=== PATIENT | female | born 1945 | race Two or more races ===

== ENCOUNTER 2021-07-09 10:28 | Emergency (ER) | payer OTHER ==
[~2021-07-09] VITALS: Ht 152.4 cm; Wt 68.0 kg
[2021-07-09] MEDS ORDERED: COZAAR100 MG PO (10:42)
== END 2021-07-09 14:23 | disposition home or self-care (01) ==
LOC: ER 10:28
DX: S61.421A Laceration with foreign body of right hand, initial encounter (principal); S00.83XA Contusion of other part of head, initial encounter; W18.09XA Striking against other object with subsequent fall, initial encounter; Y93.89 Activity, other specified; Y92.22 Religious institution as the place of occurrence of the external cause; Y99.8 Other external cause status; I10 Essential (primary) hypertension